=== PATIENT | female | born 1990 | race American Indian/Alaskan Native ===

== ENCOUNTER 2017-12-30 02:48 | Inpatient (IN) | payer MEDICAID ==
[2017-12-30] MEDS ORDERED: PITOCin/NS 20 UNIT/1000ML DRIP 20,000 MILLIUNITS/1,000 ML BAG IV ONE (02:55)
[2017-12-30] MEDS ORDERED: LACTATED RINGERS 1,000 ML ONE (02:55)
[2017-12-30] MEDS ORDERED: MINERAL OIL PO PRN (02:59)
[2017-12-30] MEDS ORDERED: BRETHINE SUB-Q PRN (02:59)
[2017-12-30] MEDS ORDERED: POLYCILLIN/NS 2 GM/100 ML 2 GM/100 ML BAG IV ONE (02:59)
[2017-12-30] MEDS ORDERED: XYLOCAINE 2% INFILTRATI ONE (02:59)
[2017-12-30] MEDS ORDERED: BRETHINE IVP PRN (02:59)
[2017-12-30] MEDS ORDERED: PITOCin/NS 20 UNIT/1000ML DRIP 20 UNITS/1,000 ML BAG IV SCH ×2 (03:00→04:00)
[2017-12-30] MEDS ORDERED: LACTATED RINGERS 1,000 ML IV SCH ×2 (03:00→04:00)
[2017-12-30] MEDS ORDERED: TYLENOL PO PRN (03:43)
[2017-12-30] MEDS ORDERED: DULCOLAX PR PRN (03:43)
[2017-12-30] MEDS ORDERED: BENADRYL PO PRN (03:43)
[2017-12-30] MEDS ORDERED: TUCKS PAD TP PRN (03:43)
[2017-12-30] MEDS ORDERED: LANSINOH TP PRN (03:43)
[2017-12-30] MEDS ORDERED: PHENERGAN PR PRN (03:43)
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
--- NOTE | 2017-12-30 03:49 | Procedure Note ---
OB Delivery Note - Delivery Date of Delivery: 12/30/17 Surgeon: ALLEN VERAS Estimated blood loss: other (250 cc) - Vaginal Delivery presentation: vertex Delivery position: OA Intrapartum events: precipitous labor- <3hr Delivery induction: none Delivery monitor: external FHT, external uterine Route of delivery: Delivery placenta: spontaneous Episiotomy: none Delivery laceration: none Anesthesia: none Delivery comments: Precipitous spontaneous vaginal delivery of liveborn female infant weighing 5 lbs. 6 oz. over intact perineum at 03:09. Patient presented to L&D 9 cm dilated and her membranes spontaneously ruptured upon arrival in room. Fluid was clear. Baby placed immediately skin to skin on mother's chest after delivery. Spontaneous cry and respirations. Baby bulb suctioned. 3 vessel cord double clamped and cut after cessation of pulsation. Spontaneous delivery of intact placenta and membranes by calle mechanism. EBL 250 cc. Pitocin to IV fluids after delivery of placenta. Vaginal sweep negative. Sponge count correct. No lacerations noted on careful inspection. As patient was delivering small raw area noted on perineum, possibly from skin stretching versus some type of lesion. HSV culture taken and NICU notified and came to delivery room to examine baby. HSV 2 serology negative per records. HSV 1 and 2 serology and RPR drawn. Advised pt.
[2017-12-30] MEDS ORDERED: SODIUM CHLORIDE FLUSH SYRINGE 10 ML IV PRN (04:00)
[2017-12-30 04:37] LABS: Hematocrit 40.3 % (30.3-42.9); Hemoglobin 13.6 gm/dl (10.1-14.3); Mean Corpuscular HGB Conc 34 % (30-34); Mean Corpuscular Hemoglobin 35 pg (28-32); Mean Corpuscular Volume 102 fl (79-97); Platelet Count 157 K/mm3 (140-440); Red Blood Count 3.94 M/mm3 (3.65-5.03); Red Cell Distribution Width 13.2 % (13.2-15.2)
[2017-12-30] MEDS: MOTRIN PO SCH ×3 (05:06→18:59)
[2017-12-30] MEDS ORDERED: AMPICILLIN/NS 1 GM/50 ML 1 GM/50 ML BAG IV SCH (07:00)
[2017-12-30 16:38] LABS: Hematocrit 37.4 % (30.3-42.9); Hemoglobin 12.6 gm/dl (10.1-14.3)
[2017-12-31] MEDS: MOTRIN PO SCH ×2 (03:33→18:10)
--- NOTE | 2017-12-31 09:43 | Progress Note ---
Assessment and Plan - Patient Problems (1) Status post normal vaginal delivery Current Visit: Yes Status: Acute Plan to address problem: PPD 2 - stable Continue routine PP orders Discharge to home later today Follow up at [facility] in 6 weeks for exam Subjective - Subjective Date of service: 12/31/17 Interval history: PPD #2, s/p Patient reports: appetite normal, voiding normally, pain well controlled, ambulating normally : doing well, transported (breast and bottle feeding) Objective - Vital Signs Latest vital signs: Vital Signs Temp Pulse Resp BP BP Pulse Ox 12/31/17 08:28 98.5 F 68 20 129/75 100 12/31/17 04:26 98.3 F 51 L 20 140/82 97 12/31/17 00:25 98.3 F 82 20 118/73 98 12/30/17 16:40 98.1 F 70 20 120/78 97 12/30/17 12:20 20 12/30/17 11:54 99.0 F 60 20 134/76 94 Intake and Output 12/30/17 12/31/17 12/31/17 23:59 07:59 15:59 Intake Total 240 240 Balance 240 240 Intake: Oral 240 240 Other: Total, Intake Amount 240 240 Voiding Method Toilet - Exam Abdomen: Present: normal appearance, soft Vulva: both: normal Uterus: Present: normal, firm, fundal height at umbilicus Extremities: Present: normal
--- NOTE | 2017-12-31 09:47 | Discharge Summary ---
Providers - Providers Date of Admission: 12/30/17 03:09 Date of discharge: 12/31/17 Attending physician: DON JAVED MD Primary care physician: DON JAVED MD Hospitalization Reason for admission: active labor, IUP at term Delivery: Episiotomy: none Laceration: none Other procedures: none complications: none Discharge diagnosis: IUP at term delivered [place] baby: female Hospital course: Uncomplicated Condition at discharge: Stable Disposition: PR-01 TO HOME OR SELFCARE - Discharge Diagnoses (1) Status post normal vaginal delivery Status: Acute Plan - Provider Discharge Summary Activity: routine, no sex for 6 weeks, no heavy lifting 4 weeks, no strenuous exercise Diet: routine Instructions: routine Additional instructions: [] Smoking cessation referral if applicable(refer to patient education folder for contact #) [] Refer to [facility] Booklet Call your doctor immediately for: * Fever > 100.5 * Heavy vaginal bleeding ( >1 pad per hour) * Severe persistent headache * Shortness of breath * Reddened, hot, painful area to leg or breast * Drainage or odor from incision. * Keep incision clean and dry at all times and follow doctor's instructions regarding bathing/showering - Follow up plan Follow up: DON JAVED MD [Primary Care Provider] - 6 Weeks (Follow up at [facility] in 6 weeks for exam)
[2017-12-31 18:38] VITALS: BP 129/85
== END 2017-12-31 22:20 | disposition home or self-care (01) | DRG 775 ==
LOC: TRG 02:48 → LD 03:09 → OB 04:55
PROVIDERS: ADMIT Obstetrics & Gynecology; ATTEND Obstetrics & Gynecology
PROC: 10E0XZZ Delivery of Products of Conception, External Approach (ICD-10-PCS; principal; 2017-12-30)
DX: O62.3 Precipitate labor (principal); Z3A.39 39 weeks gestation of pregnancy; Z37.0 Single live birth; Z82.49 Family history of ischemic heart disease and other diseases of the circulatory system
CPT/HCPCS: 36415; 85014; 85018; 85027; 86592; 86850; 86900; 86901; 87255; 87529; 99211; G0463; J0290; J2590; J7120

== ENCOUNTER 2019-05-21 15:34 | Emergency (ER) | payer MEDICAID ==
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
[2019-05-21 16:40] VITALS: BP 137/89
--- NOTE | 2019-05-21 17:54 | XRay Report ---
Right foot, 3 views INDICATION: Pain FINDINGS: The joint space is maintained. There is no fracture or dislocation. No spurring or arthriti c change. No bone lesion or periostitis. No significant abnormality. IMPRESSION: Negative study Signer Name: Oscar Canada MD Signed: 05/21/2019 5:49 PM Workstation Name: [id number]
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
== END 2019-05-21 21:25 | disposition left against medical advice (07) ==
LOC: ED 15:34
DX: S93.602S Unspecified sprain of left foot, sequela (principal); H57.12 Ocular pain, left eye; X58.XXXS Exposure to other specified factors, sequela